=== PATIENT | female | born 1955 | race Caucasian/White ===

== ENCOUNTER → 2021-12-01 11:06 | Outpatient (CLI) | payer OTHER, MEDICAID, SELFPAY ==
--- NOTE | 2021-12-01 | DI.RAD.S_ITS ---
PROCEDURE: [place] JOINT INJECTION LARGE RT INDICATIONS: Unilateral primary osteoarthritis, right hip COMPARISON: None. TECHNIQUE: The indications, alternatives, benefits, risks, and complications of the procedure were explained to the patient. Written informed consent was obtained and placed in the chart. The patient was placed in an appropriate position on the fluoroscopy table, and a site was chosen for percutaneous access under fluoroscopic guidance. The site was prepped and draped in a sterile fashion. Local anesthetic was administered using a 1% lidocaine solution. A hypodermic or spinal needle was then used to access the symptomatic joint. Intra-articular location of the needle tip was confirmed by injecting a small amount of contrast, followed by steroid administration. The needle was then withdrawn, and a bandage applied to the puncture site. FINDINGS: Joint injected: Right hip Medications injected: 4 mL of 40 mg/mL Kenalog and 0.5% Ropivacaine mixture. Patient's pain before injection: 7 out of 10. Patient's pain after injection: 0 out of 10. Complications: None. IMPRESSION: Fluoroscopically guided administration of steroid and anaesthetic solution into the right hip joint. Dictated by: Fran Bishop M.D. on 12/01/2021 at 12:19 Approved by: Fran Bishop M.D. on 12/01/2021 at 12:26
== END ==
PROVIDERS: PCP Nurse Practitioner Family; Referring Provider Counselor Mental Health; Visit Provider Counselor Mental Health
DX: M16.11 Unilateral primary osteoarthritis, right hip (principal)
CPT/HCPCS: 20610

== ENCOUNTER → 2022-07-17 14:37 | Outpatient (CLI) | payer MEDICARE, MEDICAID, OTHER, SELFPAY ==
--- NOTE | 2022-07-17 14:40 | DI.RAD.S_ITS ---
PROCEDURE: XR HIP W PEL IF DONE SUMANTH MIN 4V INDICATIONS: BILATERAL HIP PAIN TECHNIQUE: 2 view(s) of the hip acquired. Single AP view of the pelvis COMPARISON: [facility], , [place] JOINT INJECTION LARGE RT, 12/01/2021, 11:32. FINDINGS: Bones: Lower lumbar spine decompressive laminectomy. Calcified uterine fibroid noted. There is advanced right hip osteoarthritis with subchondral sclerosis and marginal osteophytes. Mild left hip osteoarthritis. Generalized decreased osseous mineralization present. Soft tissues: Overlying postoperative changes are noted. No suspicious soft tissue densities. IMPRESSION: Moderate right and mild left osteoarthritis. Calcified uterine fibroid Approved by: Gordy Mcneil M.D. on 07/17/2022 at 15:25
--- NOTE | 2022-07-17 14:40 | DI.RAD.S_ITS ---
PROCEDURE: XR KNEE RT 3V INDICATIONS: RIGHT KNEE PAIN TECHNIQUE: 3 views of the knee were acquired. COMPARISON: None. FINDINGS: Bones: No fractures or dislocations. No suspicious bony lesions. Soft tissues: No joint effusion. No suspicious soft tissue calcifications. IMPRESSION: Unremarkable right knee radiographs Approved by: Gordy Mcneil M.D. on 07/17/2022 at 15:22
--- NOTE | 2022-07-17 14:40 | DI.RAD.S_ITS ---
PROCEDURE: XR LUMBAR SPINE MIN 4V INDICATIONS: Lumbar radiculopathy TECHNIQUE: 5 views of the lumbar spine were acquired, including bilateral oblique views. COMPARISON: None. FINDINGS: Bones: 5 nonrib-bearing vertebrae are present. There is normal bony alignment. No vertebral body compression fractures. No suspicious bony lesions. Convex left thoracolumbar scoliosis present. Degenerative disc disease and arthropathy noted in the lower lumbar spine Soft tissues: Overlying bowel gas pattern is normal. Calcified uterine fibroid in the pelvis. Large amount of fecal debris in the right colon. Surgical clips in the right upper quadrant. Oblique images: No pars defects. IMPRESSION: Moderate degenerative disc disease and arthropathy in the lower lumbar spine. Thoracolumbar levoscoliosis. Approved by: Gordy Mcneil M.D. on 07/17/2022 at 17:26
== END ==
PROVIDERS: PCP Nurse Practitioner Family; Referring Provider Physical Medicine & Rehabilitation; Visit Provider Physical Medicine & Rehabilitation
DX: M51.16 Intervertebral disc disorders with radiculopathy, lumbar region (principal); M47.26 Other spondylosis with radiculopathy, lumbar region; M41.9 Scoliosis, unspecified; M16.0 Bilateral primary osteoarthritis of hip; D25.9 Leiomyoma of uterus, unspecified; M17.11 Unilateral primary osteoarthritis, right knee; M25.561 Pain in right knee; M25.552 Pain in left hip; M25.551 Pain in right hip
CPT/HCPCS: 20611; 72110; 73522; 73562; 99215; J0702

== ENCOUNTER → 2023-10-01 10:15 | Outpatient (CLI) | payer MEDICARE, SELFPAY ==
--- NOTE | 2023-10-01 | DI.NM.S_ITS ---
PROCEDURE: NM TOM PERF SPECT R&S PHARM Rest and pharmacological stress myocardial perfusion SPECT with gated imaging and ejection fraction RADIOPHARMACEUTICAL: 11.7 mCi Tc-99m tetrafosmin IV at rest and 5.9 mCi Tc-99m tetrafosmin IV at peak effect of pharmacological stress. Ing-yva-ndulzxnl was performed. INDICATIONS: Chest pain TECHNIQUE: Radiopharmaceutical was injected at peak stress test, and also at rest. SPECT images were obtained. SPECT myocardial perfusion images were displayed in short axis, horizontal long axis, and vertical long axis views. Gated images were reviewed using [email or web address] software. COMPARISON: None. CARDIAC STRESS: A pharmacologic stress test was performed under the supervision of an attending staff, using an infusion of regadenoson 0.4 mg IV. Hemodynamic data: There is normal blood pressure and heart rate response to pharmacologic stress. Symptoms: The patient denied anginal chest pain. EKG: Non diagnostic in the setting of pharmacologic stress. Baseline inferior and anterolateral precordial ST segment depressions that showed mild worsening after vasodilator infusion. FINDINGS: Raw data: There is good myocardial uptake of radiotracer. No significant motion artifacts. Vael-da-fdacu ratio is 0.27 (normal is less than 0.38 for tetrafosmin tracer). Left ventricle function: Gated images demonstrate normal left ventricular wall thickening. No segmental wall motion abnormalities. No transient ischemic dilation; TID is 0.85 (normal less than 1.3). Left ventricle resting end diastolic volume is 78 mL. Left ventricle stress ejection fraction is >75%; normal range is above 45%. Myocardial perfusion: There is a small size, moderate intensity inferoapical and apical septal wall defect noted in the rest images but resolves and stress imaging. No fixed or reversible perfusion defects. IMPRESSION: Low risk study. No evidence of pharmacologic induced ischemia. The inferoapical and apical septal wall defect noted in the rest images resolves in stress imaging and is most consistent with artifact. Nondiagnostic ST segment changes after vasodilator infusion. Normal LV size with hyperdynamic function. Dictated by: Lyla Davalos D.O. on 10/01/2023 at 16:50 Approved by: Lyla Davalos D.O. on 10/01/2023 at 16:55
== END ==
PROVIDERS: PCP Nurse Practitioner Family; Referring Provider Nurse Practitioner Family; Visit Provider Nurse Practitioner Family
DX: R07.9 Chest pain, unspecified (principal)
CPT/HCPCS: 78452; 93017; A9502; J2785

== ENCOUNTER 2024-01-02 16:28 | Emergency (ER) | payer MEDICARE, SELFPAY ==
[2024-01-02 16:37] VITALS: BP 146/74; PULSE 106; RESP 16; TEMP 37.4; O2SAT 98; BMI 20.1
--- NOTE | 2024-01-02 17:19 | DI.US.S_ITS ---
PROCEDURE: US PERIPH VENOUS LOW EXTREM RT INDICATIONS: RLE SWELLING/SPASMS, HIP REPLACEMENT 5WKS AGO TECHNIQUE: Real-time imaging, as well as color and pulse Doppler interrogation, were performed of the lower extremity deep veins from the inguinal ligament to the popliteal fossa, with documentation of the visualized calf veins. COMPARISON: None. FINDINGS: The common femoral, femoral, popliteal, and the visualized calf veins are normally compressible, and free of intraluminal thrombus. Color and pulse Doppler demonstrate normal phasic intraluminal flow. There is normal augmentation response to distal compression maneuver. IMPRESSION: No evidence of DVT in visualized right lower extremity veins. Dictated by: Larry Carnes M.D. on 01/02/2024 at 18:23 Approved by: Larry Carnes M.D. on 01/02/2024 at 18:24
[2024-01-02] MEDS: KETOROLAC 30 MG/ML VIAL 15 MG IV (17:37)
[2024-01-02 17:38] LABS: Add Manual Diff / Slide Review NO; Basophils Absolute Auto 0 /uL (0-100); Basophils Percent Auto 0.3 % (0-2); Eosinophils Absolute Auto 100 /uL (0-450); Eosinophils Percent Auto 1.3 % (2-4); Hematocrit 31.5 % (36-46); Hemoglobin 10.2 g/dL (12.0-16.0); Lymphocytes Absolute Auto 1900 /uL (1100-4500); Lymphocytes Percent Auto 19.7 % (25-40); Mean Corpuscular HGB Conc 32.3 % (30-36); Mean Corpuscular Hemoglobin 28.9 PG (26-34); Mean Corpuscular Volume 89.4 fL (80-100); Monocytes Absolute Auto 600 /uL (0-900); Monocytes Percent Auto 6.2 % (3-14); Neutrophils Absolute Auto 7000 /uL (1500-7000); Neutrophils Percent Auto 72.5 % (50-75); Platelet Count 322 X10^3/uL (150-400); Red Blood Cell Count 3.52 X10^6/uL (4.0-5.2); Red Cell Distribution Width 15.5 % (11.6-14.8); White Blood Cell Count 9.7 X10^3/uL (4.5-11.0)
[2024-01-02] MEDS: diazePAM 10 MG/2 ML SYRINGE 2 MG IV (17:38)
[2024-01-02] MEDS: TRAMADOL 50 MG TABLET PO (17:38)
[2024-01-02 17:57] LABS: Alanine Aminotransferase 18 IU/L (<35); Albumin 3.9 g/dL (3.5-5.0); Albumin Globulin Ratio 1.3 (1.0-2.8); Alkaline Phosphatase 91 U/L (38-126); Aspartate Aminotransferase 22 IU/L (14-36); BUN Creatinine Ratio 28.8 (6-22); Bilirubin Total 0.3 mg/dL (0.2-1.3); Blood Urea Nitrogen 15 mg/dL (7-17); Carbon Dioxide 25 mmol/L (22-32); Chloride 107 mmol/L (98-107); Estimated Glomerular Filt Rate > 60 mL/min (>60); Glucose 123 mg/dL (80-110); HEMOLYSIS < 15 (0-50); Potassium 3.6 mmol/L (3.4-5.1); Sodium 140 mmol/L (137-145); Total Protein 6.9 g/dL (6.3-8.2)
[2024-01-02 18:05] VITALS: PULSE 104; O2SAT 100
[2024-01-02 18:30] VITALS: PULSE 103; O2SAT 100
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
[2024-01-02] MEDS: TRAMADOL 50 MG PREPACK 1 BOTTLE MISC (19:27)
[2024-01-02 19:49] LABS: Appearance Urine UA CLEAR; Bilirubin Urine UA NEGATIVE (NEGATIVE); Color Urine UA YELLOW; Glucose Urine UA NEGATIVE (Negative); Ketones Urine UA NEGATIVE (NEGATIVE); Leukocyte Esterase Urine UA 1+ (NEGATIVE); Nitrite Urine UA NEGATIVE (Negative); Occult Blood Urine UA TRACE-INTACT (Negative); Protein Urine UA NEGATIVE (Negative); Specific Gravity Urine UA <=1.005 (1.000-1.035); Urobilinogen Urine UA 0.2 E.U./dL (0.2); pH Urine UA 6.5 (4.5-8.0)
[2024-01-02 19:55] LABS: Bacteria Urine Few (2-10); Culture Indicated Urine Specimen Cultured; Mucus Urine 1+ (Negative); RBC Urine 0-1/HPF (0-5/HPF); Squamous Epithelial Cell Urine 1-5 /HPF (0-5/HPF); Urine Volume 10mL (spun); WBC Urine 1-5/HPF (0-5/HPF)
[2024-01-02] MEDS: NITROFURANTOIN ER 100 MG CAPSULE PO (21:01)
[2024-01-02 21:13] VITALS: BP 133/78; PULSE 85; RESP 18; TEMP 36.9; O2SAT 98
== END 2024-01-02 21:14 | disposition home or self-care (01) ==
PROVIDERS: Emergency Medicine; Emergency Provider Emergency Medicine; PCP Nurse Practitioner Family
DX: N39.0 Urinary tract infection, site not specified (principal); M62.831 Muscle spasm of calf; Z79.01 Long term (current) use of anticoagulants
CPT/HCPCS: 36415; 80053; 81001; 81003; 85025; 87086; 93971; 96374; 96375; 99284; J1885; J3360

== ENCOUNTER 2024-01-24 18:34 | Emergency (ER) | payer MEDICARE, SELFPAY ==
[2024-01-24 18:55] VITALS: BP 136/87; PULSE 107; RESP 20; TEMP 36.5; O2SAT 100; BMI 20.1
[2024-01-24 20:00] VITALS: BP 145/87; PULSE 65; RESP 18; O2SAT 98
[2024-01-24 21:00] VITALS: BP 145/98; PULSE 85; RESP 18; O2SAT 98
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
[2024-01-24] MEDS: MORPHINE 4 MG/ML INJ 10 MG IM (21:27)
[2024-01-24] MEDS: TRAMADOL 50 MG PREPACK 1 BOTTLE MISC (21:49)
[2024-01-24 21:54] VITALS: BP 138/69; PULSE 78; RESP 18; TEMP 36.9; O2SAT 98
== END 2024-01-24 21:56 | disposition home or self-care (01) ==
PROVIDERS: Emergency Provider Emergency Medicine; PCP Nurse Practitioner Family
DX: M62.838 Other muscle spasm (principal); Z72.820 Sleep deprivation
CPT/HCPCS: 96372; 99283; J2270